=== PATIENT | female | born 1965 | race Caucasian/White ===

== ENCOUNTER 2017-07-07 13:34 | Emergency (ER) | payer OTHER, MEDICAID ==
[~2017-07-07] VITALS: Ht 157.5 cm; Wt 100.0 kg
[2017-07-07 13:38] VITALS: BP 201/95
[2017-07-07] MEDS ORDERED: HYDROcodone/APAP 5/325 TABLET PO ONE (15:00)
[2017-07-07] MEDS ORDERED: HYDROcodone/APAP 5/325 TABLET ONE (15:00)
== END 2017-07-07 15:57 | disposition home or self-care (01) ==
LOC: ED 15:47
DX: S93.491A Sprain of other ligament of right ankle, initial encounter (principal); S80.01XA Contusion of right knee, initial encounter; E78.00 Pure hypercholesterolemia, unspecified; F41.9 Anxiety disorder, unspecified; I10 Essential (primary) hypertension; G62.9 Polyneuropathy, unspecified; W01.0XXA Fall on same level from slipping, tripping and stumbling without subsequent striking against object, initial encounter; Y93.01 Activity, walking, marching and hiking; Y92.89 Other specified places as the place of occurrence of the external cause; Y99.8 Other external cause status
CPT/HCPCS: 99284

== ENCOUNTER → 2018-05-09 | Outpatient (CLI) | payer OTHER, MEDICAID ==
[~2018-05-09] MED LIST: ALBU0.63 NEB; ALPR0.25 PO; AMLO10TA6 PO; BUDE10.2 INH; CALC-361 PO; GABA800T2 PO; HYDR50TA13 PO; LISI-170 PO; MONT10TA9 PO; NAPR-850 PO; OMEP-110 PO; ONDA4TAB10 PO; PANT40TA5 PO; POTA99TA24 PO; PREG75CA PO; REGADENOSON 0.4 MG/5 ML SYRINGE ONE; SIMV20TA3 PO; TIZA2CAP PO; TRAZ-137 PO
== END | disposition home or self-care (01) ==
LOC: CFH 07:21
PROVIDERS: ATTEND Internal Medicine Cardiovascular Disease
DX: I07.1 Rheumatic tricuspid insufficiency (principal); I35.8 Other nonrheumatic aortic valve disorders; F17.210 Nicotine dependence, cigarettes, uncomplicated
CPT/HCPCS: 78452; 93017; 93306; A9502; J2785

== ENCOUNTER → 2019-11-08 | Outpatient (CLI) | payer MEDICARE, MEDICAID ==
[~2019-11-08] MED LIST changes: -AMLO10TA6 PO; +AMLO10TA8 PO; -GABA800T2 PO; +GABA800T5 PO; -HYDR50TA13 PO; +HYDR50TA99 PO; +LIDOCAINE-MPF 1%, 5ML ONE; +MONT10TA11 PO; -MONT10TA9 PO; -REGADENOSON 0.4 MG/5 ML SYRINGE ONE; +SIMV20TA19 PO; -SIMV20TA3 PO; -TRAZ-137 PO; +TRAZ-175 PO
[2019-11-08 10:22] LABS: MEAN CORPUSCULAR HEMOGLOBIN 27.1 pg (27.0-34.8); MEAN CORPUSCULAR HGB CONC 31.7 g/dL (32.4-35.8); MEAN CORPUSCULAR VOLUME 85.5 fL (80-100); MEAN PLATELET VOLUME 9.4 fL (7.4-10.4); PLATELET COUNT 283 x10^3/uL (130-400); RED BLOOD COUNT 5.18 x10^6/uL (3.82-5.3); RED CELL DISTRIBUTION WIDTH 20.5 % (9.6-15.2)
[2019-11-08 10:31] LABS: ALBUMIN 3.3 g/dL (3.4-5.0); ANION GAP 6 mmol/L (5-15); CALCIUM 8.5 mg/dL (8.5-10.1); CHLORIDE 112 mmol/L (98-107)
[2019-11-08 10:39] LABS: ALANINE AMINOTRANSFERASE 27 U/L (12-78); ALKALINE PHOSPHATASE 74 U/L (45-117); BILIRUBIN,TOTAL 0.3 mg/dL (0.2-1.0); CREATININE 0.69 mg/dL (0.55-1.02); MD YES; TOTAL PROTEIN 6.7 g/dL (6.4-8.2)
[2019-11-08 10:40] LABS: BAND#(MANUAL) 0.31 x10^3/uL; BANDS%(MANUAL) 2 % (0-7); EOS#(MANUAL) 0.31 x10^3/uL (0.0-0.4); EOS% (MANUAL) 2 % (1-7); LYMPHS% (MANUAL) 15 % (22-44); MONOS#(MANUAL) 0.46 x10^3/uL (0.3-2.7); MONOS% (MANUAL) 3 % (2-9); SEG#(MANUAL) 11.93 x10^3/uL (1.8-6.8); SEGS% (MANUAL) 78 % (42-75)
[2019-11-08 10:41] LABS: <PLATELET ESTIMATE> ADEQUATE; <PLT MORPHOLOGY> NORMAL PLT MORPH; ANISOCYTOSIS 1+; OVALOCYTES 1+
[2019-11-08 11:11] LABS: GLUCOSE, CSF 66 mg/dL (40-80); TOTAL PROTEIN,CSF 46 mg/dL (15-45)
[2019-11-08 11:38] LABS: HCT (SEDRATE) 44.3 % (34.6-47.8)
[2019-11-08 14:51] LABS: ANA SCREEN POSITIVE (Negative); ANA TITER 1:40; ANTI-NUCLEAR ANTIBODY PATTERN SPECKLED
== END | disposition home or self-care (01) ==
LOC: RAD 08:05
PROVIDERS: ATTEND Psychiatry & Neurology Neurology
DX: H47.10 Unspecified papilledema (principal); G93.2 Benign intracranial hypertension
CPT/HCPCS: 36415; 62328; 80053; 82040; 82042; 82164; 82784; 82945; 83520; 83873; 84157; 85025; 85549; 85651; 86038; 86039; 86140; 86147; 86592; 86645; 86695; 86696; 86762; 86777; 86778; 87070; 87075; 87102; 87116; 87205; 87206; 87899; 88108; 89051